=== PATIENT | male | born 1980 | race African-American/Black ===

== ENCOUNTER 2018-01-02 11:51 | Emergency (ER) | payer OTHER | END 2018-01-02 15:15 | disposition home or self-care (01) | LOC: FTE 11:51 | DX: M54.9 Dorsalgia, unspecified (principal) | CPT/HCPCS: 71046; 99283-25 ==

== ENCOUNTER 2018-06-03 13:19 | Emergency (ER) | payer OTHER ==
[2018-06-03] MEDS: IBUPROFEN 800 MG TAB PO (14:11)
[2018-06-03] MEDS: ACETAMINOPHEN 500 MG TAB PO (14:11)
[2018-06-03] MEDS: PROMETHAZINE/DM (CUP) PO (14:14)
[2018-06-03] MEDS: BENZONATATE 100 MG CAP PO (14:14)
== END 2018-06-03 15:05 | disposition home or self-care (01) ==
LOC: FTE 13:19
DX: J11.1 Influenza due to unidentified influenza virus with other respiratory manifestations (principal)
CPT/HCPCS: 71045; 99283-25